=== PATIENT | female | born 1955 | race African-American/Black ===

== ENCOUNTER 2016-08-08 20:06 | Emergency (ER) | payer BC, MEDICAID ==
[~2016-08-08] VITALS: Ht 172.7 cm; Wt 86.0 kg
[~2016-08-08 20:06] MED LIST: ALBU18HF2 IH; ALBU2.5V13 NEB; MOME13HF INH; MONT10TA24 PO; NAPR375T5 MT; RANI300T4 PO
[2016-08-08 20:17] VITALS: BP 149/81
== END 2016-08-08 22:40 | disposition left against medical advice (07) ==
LOC: ER 20:06
DX: Z53.21 Procedure and treatment not carried out due to patient leaving prior to being seen by health care provider (principal)

== ENCOUNTER 2018-01-31 08:37 | Emergency (ER) | payer BC, MEDICAID ==
[~2018-01-31] VITALS: Ht 175.3 cm; Wt 91.0 kg
[2018-01-31] MEDS ORDERED: IPRATROPIUM BROMIDE (0.02%) 0.5MG/2.5ML NEB HHN STA (09:13)
[2018-01-31] MEDS ORDERED: ALBUTEROL (0.083%) 2.5MG/3ML NEB HHN STA (09:13)
[2018-01-31 09:37] LABS: BASOPHILS % 1.6 % (0.0-2.0); HEMATOCRIT. 42.4 % (36.0-48.0); HEMOGLOBIN. 14.3 g/dL (12.0-16.0); LYMPHOCYTES % 40.2 % (20.0-50.0); MEAN CORPUSCULAR HEMOGLOBIN 32.2 pg (28.0-32.0); MEAN CORPUSCULAR VOLUME 95.8 fL (81.0-99.0); MEAN PLATELET VOLUME 9.7 fl (7.4-10.4); MONOCYTES % 3.9 % (2.0-8.0); NEUTROPHILS % 49.3 % (40.0-76.0); PLATELET 207 x1000/uL (130-400); RED BLOOD CELL COUNT 4.43 mill/uL (4.2-5.4); RED CELL DISTRIBUTION WIDTH 14.2 % (11.6-14.6)
[2018-01-31 09:44] LABS: INR 1.1; PROTHROMBIN TIME 11.3 sec (9.1-11.1)
[2018-01-31 09:50] LABS: CHLORIDE 110 mEq/L (98-107)
[2018-01-31 13:24] VITALS: BP 153/80
== END 2018-01-31 13:29 | disposition home or self-care (01) ==
LOC: ER 08:37
DX: J45.901 Unspecified asthma with (acute) exacerbation (principal); I11.0 Hypertensive heart disease with heart failure; I50.9 Heart failure, unspecified; E78.5 Hyperlipidemia, unspecified; R07.9 Chest pain, unspecified; Z88.6 Allergy status to analgesic agent; Z79.899 Other long term (current) drug therapy
CPT/HCPCS: 36415; 71045; 80053; 83880; 84484; 85025; 85610; 93005; 94640; 99285; J7611; Z7610

== ENCOUNTER 2018-06-15 00:04 | Emergency (ER) | payer BC, MEDICAID ==
[~2018-06-15] VITALS: Ht 175.3 cm; Wt 105.0 kg
[2018-06-15] MEDS ORDERED: ASPIRIN 81MG TABLET PO ONE (03:15)
[2018-06-15 03:40] LABS: BASOPHILS % 0.8 % (0.0-2.0); EOSINOPHILS % 3.4 % (0.0-5.0); HEMATOCRIT. 41.3 % (36.0-48.0); HEMOGLOBIN. 13.5 g/dL (12.0-16.0); LYMPHOCYTES % 36.9 % (20.0-50.0); MEAN CORPUSCULAR HEMOGLOBIN 31.9 pg (28.0-32.0); MEAN CORPUSCULAR VOLUME 97.5 fL (81.0-99.0); MEAN PLATELET VOLUME 9.7 fl (7.4-10.4); MONOCYTES % 3.7 % (2.0-8.0); NEUTROPHILS % 55.2 % (40.0-76.0); PLATELET 192 x1000/uL (130-400); RED BLOOD CELL COUNT 4.23 mill/uL (4.2-5.4); RED CELL DISTRIBUTION WIDTH 14.3 % (11.6-14.6)
[2018-06-15 03:47] LABS: CHLORIDE 109 mEq/L (98-107)
[2018-06-15 03:49] LABS: INR 1.1; PROTHROMBIN TIME 10.9 sec (9.1-11.1)
[2018-06-15 05:55] VITALS: BP 140/72
== END 2018-06-15 05:55 | disposition home or self-care (01) ==
LOC: ER 00:04
DX: R07.89 Other chest pain (principal); I10 Essential (primary) hypertension; Z79.899 Other long term (current) drug therapy
CPT/HCPCS: 36415; 71045; 83880; 84484; 93005; 99284